=== PATIENT | female | born 1995 | race Caucasian/White ===

== ENCOUNTER → 2016-04-02 | Outpatient (CLI) | payer OTHER ==
[~2016-04-02] MED LIST: ACET50TA PO; IBUP80TA PO; SLOW160T PO; VITAPRTA PO
== END ==
LOC: M SMT 09:03
PROVIDERS: ATTEND Advanced Practice Midwife
DX: F32.89 Other specified depressive episodes (principal)

== ENCOUNTER → 2017-12-13 | Outpatient (REF) | payer SELFPAY, OTHER ==
[2017-12-13 21:16] LABS: CHLAMYDIA DNA AMPLIFICATION NEGATIVE (NEGATIVE); GC DNA AMPLIFICATION NEGATIVE (NEGATIVE)
== END ==
LOC: M SFHCLERA 15:58
DX: N89.8 Other specified noninflammatory disorders of vagina (principal); J02.9 Acute pharyngitis, unspecified

== ENCOUNTER → 2018-02-18 | Outpatient (CLI) | payer SELFPAY ==
[2018-02-20 10:09] LABS: HEPATITIS B SURFACE ANTIGEN NEGATIVE (NEGATIVE)
== END ==
LOC: M SMT 13:16
DX: Z13.89 Encounter for screening for other disorder (principal)

== ENCOUNTER → 2018-02-25 | Outpatient (REF) | payer SELFPAY, OTHER ==
[2018-02-26 13:52] LABS: CHLAMYDIA DNA AMPLIFICATION NEGATIVE (NEGATIVE); GC DNA AMPLIFICATION NEGATIVE (NEGATIVE)
== END ==
LOC: M SFHCLERA 20:22
DX: N89.8 Other specified noninflammatory disorders of vagina (principal)
CPT/HCPCS: 87086

== ENCOUNTER → 2018-03-20 | Outpatient (REF) | payer OTHER ==
[~2018-03-20] MED LIST changes: -ACET50TA PO; +MAPA500T2 PO
== END ==
LOC: M SFHCLERA 10:39
PROVIDERS: ATTEND Nurse Practitioner Family
DX: N89.8 Other specified noninflammatory disorders of vagina (principal)

== ENCOUNTER → 2018-04-16 | Outpatient (REF) | payer BC ==
[2018-04-16 23:06] LABS: CHLAMYDIA DNA AMPLIFICATION NEGATIVE (NEGATIVE); GC DNA AMPLIFICATION NEGATIVE (NEGATIVE)
== END ==
LOC: M SFHCLUC 15:05
PROVIDERS: ATTEND Nurse Practitioner Family
DX: R10.9 Unspecified abdominal pain (principal)

== ENCOUNTER → 2018-05-21 | Outpatient (REF) | payer BC ==
[2018-05-21 22:01] LABS: CHLAMYDIA DNA AMPLIFICATION NEGATIVE (NEGATIVE); GC DNA AMPLIFICATION NEGATIVE (NEGATIVE)
== END ==
LOC: M SFHCLERA 12:23
PROVIDERS: ATTEND Nurse Practitioner Family
DX: R10.9 Unspecified abdominal pain (principal)

== ENCOUNTER → 2019-07-07 | Outpatient (REF) | payer BC | LOC: M LAB REF 16:58 | PROVIDERS: ATTEND Physician Assistant | DX: J02.9 Acute pharyngitis, unspecified (principal) ==

== ENCOUNTER → 2019-08-30 | Outpatient (REF) | payer BC | LOC: M LAB REF 17:43 | PROVIDERS: ATTEND Physician Assistant | DX: N39.0 Urinary tract infection, site not specified (principal) ==

== ENCOUNTER 2019-11-11 12:05 | Day surgery (SDC) | payer BC ==
[2019-11-11] MEDS ORDERED: LIDOCAINE 2% 100MG/5ML SDV (FOR ANES.) As Ordered ONE (12:18)
[2019-11-11] MEDS ORDERED: ROCURONIUM BROMIDE 50 MG/5 ML VIAL As Ordered ONE (12:18)
[2019-11-11] MEDS ORDERED: propofoL 200 MG/20 ML VIAL As Ordered ONE (12:18)
[2019-11-11] MEDS ORDERED: dexameTHASONE 4 MG/ML 1ML VIAL (J1100 PER 1MG) As Ordered ONE (12:18)
[2019-11-11] MEDS ORDERED: SUGAMMADEX SODIUM 500 MG/5 ML VIAL (BRIDION) As Ordered ONE (12:18)
[2019-11-11] MEDS ORDERED: ONDANSETRON 4MG/2ML VIAL As Ordered ONE (12:18)
[2019-11-11] MEDS ORDERED: fentaNYL 100 MCG/2 ML INJECTION (J3010) As Ordered ONE ×2 (12:19→13:14)
[2019-11-11] MEDS ORDERED: MIDAZOLAM INJ 2MG/2ML VIAL (J2250 PER 1MG) As Ordered ONE (12:19)
[2019-11-11] MEDS ORDERED: LIDOCAINE W/EPINEPHRINE 1% 20ML VIAL As Ordered ONE (12:42)
[2019-11-11] MEDS ORDERED: BUPIVACAINE HCL 0.25% 10ML VIAL As Ordered ONE (12:42)
[2019-11-11] MEDS ORDERED: SCOPOLAMINE 1MG TRANSDERMAL PATCH As Ordered ONE (12:54)
[2019-11-11] MEDS ORDERED: SCOPOLAMINE 1MG TRANSDERMAL PATCH ONE (12:54)
[2019-11-11] MEDS ORDERED: IBUPROFEN 600MG TAB As Ordered ONE (13:57)
[2019-11-11] MEDS ORDERED: IBUPROFEN 600MG TAB ONE (13:57)
[2019-11-11] MEDS ORDERED: PERCOCET 5MG/325MG TAB As Ordered ONE (14:52)
[2019-11-11] MEDS ORDERED: PERCOCET 5MG/325MG TAB ONE (14:52)
--- NOTE | 2020-01-07 08:45 | RO ---
DATE OF OPERATION: 11/11/2019 PREOPERATIVE DIAGNOSIS: Chronic tonsillitis. POSTOPERATIVE DIAGNOSIS: Chronic tonsillitis. PROCEDURE: Tonsillectomy. SURGEON: Alexis Temple MD Under general anesthesia with the patient intubated, the patient draped in the usual manner. A Ingram-Hunter mouth gag was inserted. The tonsillar area was infiltrated with lidocaine with epinephrine and Marcaine. Cautery was used to dissect the tonsil free from its bed on both sides. The base, apex, and other areas were cauterized. Patient tolerated the procedure well. No bleeding. Patient extubated and transferred to the recovery room in excellent condition. [id number]
== END 2019-11-11 15:47 | disposition home or self-care (01) ==
LOC: M SDC 12:05
PROVIDERS: ATTEND Otolaryngology
DX: J35.01 Chronic tonsillitis (principal); Z79.899 Other long term (current) drug therapy
CPT/HCPCS: 42826; 88302; J1100; J2250; J2405; J3010

== ENCOUNTER → 2020-02-09 | Outpatient (CLI) | payer BC ==
[2020-02-09 17:33] LABS: BASO % 0.6 % (0.0-1.0); EOS # 0.1 10^3/uL (0.0-0.5); EOS % 1.6 % (0.0-3.0); HEMATOCRIT 37.3 % (36.0-47.0); LYMPH # 1.9 10^3/uL (1.5-5.0); LYMPH % 37.6 % (24.0-44.0); MEAN CORPUSCULAR HEMOGLOBIN 30.3 pg (27.0-33.0); MEAN CORPUSCULAR HGB CONC 32.2 g/dl (32.0-36.5); MEAN CORPUSCULAR VOLUME 94.2 fl (80.0-96.0); MONO # 0.5 10^3/uL (0.0-0.8); MONO % 9.1 % (0.0-5.0); NEUTROPHILS # 2.5 10^3/uL (1.5-8.5); NEUTROPHILS % 50.9 % (36.0-66.0); PLATELET COUNT, AUTOMATED 232 10^3/uL (150-450); RED BLOOD COUNT 3.96 10^6/uL (4.00-5.40)
[2020-02-09 17:53] LABS: ALBUMIN 3.5 GM/DL (3.2-5.2); ALT/SGPT 20 U/L (12-78); BILIRUBIN,TOTAL 0.4 MG/DL (0.2-1.0); BLOOD UREA NITROGEN 9 MG/DL (7-18); C REACTIVE PROTEIN QUANTITATIV 0.96 MG/DL (0.00-0.30); CALCIUM LEVEL 8.9 MG/DL (8.5-10.1); CARBON DIOXIDE LEVEL 27 MEQ/L (21-32); CHLORIDE LEVEL 109 MEQ/L (98-107); CREATININE FOR GFR 0.88 MG/DL (0.55-1.30); GLOMERULAR FILTRATION RATE > 60.0 (>60); GLUCOSE, FASTING 83 MG/DL (70-100); POTASSIUM SERUM 3.8 MEQ/L (3.5-5.1); RHEUMATOID FACTOR QUANT < 10.0 IU/ML (<15.0); SODIUM LEVEL 141 MEQ/L (136-145)
[2020-02-09 18:49] LABS: ERYTHROCYTE SEDIMENTATION RATE 23 mm/hr (0-20)
== END ==
LOC: M PLALAB 15:37
PROVIDERS: ATTEND Physician Assistant
DX: M25.562 Pain in left knee (principal)

== ENCOUNTER → 2023-12-22 | Outpatient (CLI) | payer MEDICAID, MEDICARE, OTHER ==
[2023-12-22 15:21] LABS: HEMATOCRIT 31.9 % (36.0-47.0); HEMOGLOBIN 10.8 g/dl (12.0-15.5); MEAN CORPUSCULAR HEMOGLOBIN 31.7 pg (27.0-33.0); MEAN CORPUSCULAR HGB CONC 33.9 g/dl (32.0-36.5); MEAN CORPUSCULAR VOLUME 93.5 fl (80.0-96.0); PLATELET COUNT, AUTOMATED 223 10^3/uL (150-450); RED BLOOD COUNT 3.41 10^6/uL (4.00-5.40); WHITE BLOOD COUNT 7.3 10^3/uL (4.0-10.0)
[2023-12-22 16:17] LABS: HIV 1&2 SCREEN NEGATIVE (NEGATIVE)
[2023-12-22 16:25] LABS: HEPATITIS C VIRUS ABY INDEX < 0.02 INDEX (<0.8)
[2023-12-22 17:03] LABS: GC DNA AMPLIFICATION NEGATIVE (NEGATIVE)
== END ==
LOC: M PLAIMG 12:24
PROVIDERS: ATTEND Advanced Practice Midwife
DX: Z34.81 Encounter for supervision of other normal pregnancy, first trimester (principal); Z11.3 Encounter for screening for infections with a predominantly sexual mode of transmission

== ENCOUNTER → 2024-02-20 | Outpatient (CLI) | payer OTHER ==
[2024-02-20 13:51] LABS: HEMATOCRIT 29.7 % (36.0-47.0); HEMOGLOBIN 9.5 g/dl (12.0-15.5); MEAN CORPUSCULAR HEMOGLOBIN 30.3 pg (27.0-33.0); MEAN CORPUSCULAR VOLUME 94.6 fl (80.0-96.0); PLATELET COUNT, AUTOMATED 246 10^3/uL (150-450); RED BLOOD COUNT 3.14 10^6/uL (4.00-5.40); WHITE BLOOD COUNT 9.3 10^3/uL (4.0-10.0)
[2024-02-20 13:53] LABS: GLUCOSE CHALLENGE TEST 1 HOUR 151 MG/DL (LESS THAN 140)
[2024-02-20 14:25] LABS: HIV 1&2 SCREEN NEGATIVE (NEGATIVE)
[2024-02-20 14:33] LABS: HEPATITIS C VIRUS ABY INDEX 0.16 INDEX (<0.8)
[2024-02-20 15:26] LABS: GC DNA AMPLIFICATION NEGATIVE (NEGATIVE)
== END ==
LOC: M PLALAB 08:58
PROVIDERS: ATTEND Obstetrics & Gynecology
DX: Z34.92 Encounter for supervision of normal pregnancy, unspecified, second trimester (principal)

== ENCOUNTER → 2024-03-19 | Outpatient (CLI) | payer OTHER ==
[2024-03-19 18:17] LABS: URIC ACID 3.1 MG/DL (3.1-7.8)
[2024-03-19 18:21] LABS: ALBUMIN 2.6 G/DL (3.2-5.2); ALKALINE PHOSPHATASE 109 U/L (35-104); ALT/SGPT 20 U/L (7.0-40); AST/SGOT 22 U/L (<34); BILIRUBIN,TOTAL 0.5 MG/DL (0.3-1.2); BLOOD UREA NITROGEN 6 MG/DL (9-23); CALCIUM LEVEL 8.7 MG/DL (8.5-10.1); CARBON DIOXIDE LEVEL 26 MMOL/L (20-31); CHLORIDE LEVEL 106 MMOL/L (98-107); CREATININE FOR GFR 0.55 MG/DL (0.55-1.30); GLOMERULAR FILTRATION RATE > 60.0 (>60); GLUCOSE, FASTING 70 MG/DL (60-100); SODIUM LEVEL 140 MMOL/L (136-145)
== END ==
LOC: M PLALAB 16:23
PROVIDERS: ATTEND Nurse Practitioner Family
DX: L29.9 Pruritus, unspecified (principal)

== ENCOUNTER → 2024-04-28 | Outpatient (REF) | payer OTHER | LOC: M SFHCWAGY 09:37 | PROVIDERS: ATTEND Obstetrics & Gynecology | DX: Z36.85 Encounter for antenatal screening for Streptococcus B (principal) ==

== ENCOUNTER 2024-05-20 07:04 | Outpatient (CLI) | payer OTHER ==
[~2024-05-20] VITALS: Ht 172.7 cm; Wt 90.9 kg
[2024-05-20 07:22] VITALS: BP 121/60
[2024-05-20 08:52] VITALS: BP 117/61
== END 2024-05-20 09:45 | disposition home or self-care (01) ==
LOC: M LDO 07:04
PROVIDERS: ATTEND Obstetrics & Gynecology
DX: O47.1 False labor at or after 37 completed weeks of gestation (principal); O99.013 Anemia complicating pregnancy, third trimester; O36.0130 Maternal care for anti-D [Rh] antibodies, third trimester, not applicable or unspecified; D50.9 Iron deficiency anemia, unspecified; Z91.199 Patient's noncompliance with other medical treatment and regimen due to unspecified reason; Z3A.39 39 weeks gestation of pregnancy
CPT/HCPCS: 59025; G0463

== ENCOUNTER 2024-05-28 11:22 | Inpatient (IN) | payer OTHER ==
[~2024-05-28] VITALS: Ht 172.7 cm; Wt 91.8 kg
[2024-05-28] VITALS (22 sets, daily range): BP systolic 106–197; BP diastolic 60–106; O2SAT 97
[2024-05-28] MEDS ORDERED: LACTATED RINGER'S 1000 ML IV STA (12:07)
[2024-05-28] MEDS ORDERED: CARBOPROST TROMETHAMINE 250 MCG/ML AMP IM PRN (12:10)
[2024-05-28] MEDS ORDERED: OXYTOCIN INJ 10UNITS/ML 1ML VIAL IM PRN (12:10)
[2024-05-28] MEDS ORDERED: TRANEXAMIC ACID INJection 1,000 MG in NS 100 ML IV PRN (12:10)
[2024-05-28] MEDS ORDERED: LIDOCAINE 1% MDV 20ML VIAL INFIL PRN (12:10)
[2024-05-28 12:45] LABS: HEMATOCRIT 33.9 % (36.0-47.0); HEMOGLOBIN 10.5 g/dl (12.0-15.5); MEAN CORPUSCULAR HEMOGLOBIN 26.6 pg (27.0-33.0); PLATELET COUNT, AUTOMATED 258 10^3/uL (150-450); RED BLOOD COUNT 3.94 10^6/uL (4.00-5.40); WHITE BLOOD COUNT 10.4 10^3/uL (4.0-10.0)
[2024-05-28] MEDS: miSOPROStol 50MCG 1/2 TABLET PO SCH (12:49)
[2024-05-28 13:37] LABS: HIV 1&2 SCREEN NEGATIVE (NEGATIVE)
[2024-05-28 13:45] LABS: HEPATITIS C VIRUS ABY INDEX 0.11 INDEX (<0.8)
[2024-05-28] MEDS: PROMETHAZINE 25MG/ML 1ML VIAL IV ONE (17:13)
[2024-05-28] MEDS: BUTORPHANOL 2 MG/ML 1ML VIAL IV ONE (17:13)
[2024-05-28] MEDS ORDERED: diphenhydrAMINE 50MG/ML VIAL IV PRN (19:45)
[2024-05-28] MEDS ORDERED: EPIDURAL/PCA KEYS XX PRN (19:45)
[2024-05-28] MEDS ORDERED: ePHEDrine SULFATE 25 MG/5 ML(5MG/ML) SYRINGE IVP PRN (19:45)
[2024-05-28] MEDS ORDERED: NALOXONE INJ 0.4MG/1ML VIAL IV PRN (19:45)
[2024-05-28] MEDS: FENTANYL/ROPIVACAINE/NACL BAG 100 ML EPIDURAL SCH (19:52)
[2024-05-28] MEDS: METHYLERGONOVINE MALEATE 0.2MG/ML 1ML VIAL IM PRN (21:25)
[2024-05-28] MEDS: OXYTOCIN DRIP 30 UNITS in IV 1 EA IV PRN (21:25)
[2024-05-28] MEDS: LR 500 ML IV PRN (21:25)
[2024-05-28] MEDS ORDERED: ACETAMINOPHEN 325 MG TAB PO PRN (21:50)
[2024-05-28] MEDS ORDERED: ANUSOL HC CREAM 30GM TOP PRN (21:50)
[2024-05-28] MEDS ORDERED: DOCUSATE SODIUM 100MG CAPSULE PO PRN (21:50)
[2024-05-28] MEDS ORDERED: MOM 30ML SUSPENSION UDC PO PRN (21:50)
[2024-05-28] MEDS ORDERED: IBUPROFEN 600MG TAB PO PRN (21:50)
[2024-05-28] MEDS ORDERED: IBUPROFEN 800 MG TAB PO PRN (21:50)
[2024-05-28] MEDS ORDERED: DIBUCAINE 1% OINTMENT 30GM TOP PRN (21:50)
[2024-05-28] MEDS: KETOROLAC 30 MG/ML 1ML VIAL IV ONE (22:50)
[2024-05-28] MEDS: ONDANSETRON 4MG 2ML VIAL IV PRN (23:50)
[2024-05-29 06:10] VITALS: BP 111/51; O2SAT 99
[2024-05-29] MEDS: ACETAMINOPHEN 500 MG TAB PO PRN (08:19)
[2024-05-29] MEDS: PRENATAL VITAMINS CHEWABLE TABLET PO SCH (08:19)
[2024-05-29 10:00] VITALS: BP 111/51; TEMP 97.8; O2SAT 99
[2024-05-29] MEDS: RHOGAM 300MCG (1500IU) INJ IM SCH (12:24)
[2024-05-29] MEDS ORDERED: ACET-683 PO (14:35)
[2024-05-29] MEDS ORDERED: IBUP80TA PO (14:35)
[2024-05-30] MEDS ORDERED: MEASLES,MUMPS,RUBELLA VACCINE INJ (MMR-II) SC.IMMUN ONE (09:00)
== END 2024-05-29 16:00 | disposition home or self-care (01) | DRG 560 ==
LOC: M LDI 11:22 → M OBS 23:13
PROVIDERS: ADMIT Advanced Practice Midwife; ATTEND Advanced Practice Midwife
PROC: 10E0XZZ Delivery of Products of Conception, External Approach (ICD-10-PCS; principal; 2024-05-28)
PROC: 3E0P7GC Introduction of Other Therapeutic Substance into Female Reproductive, Via Natural or Artificial Opening (ICD-10-PCS; 2024-05-28)
DX: O99.892 Other specified diseases and conditions complicating childbirth (principal); O48.0 Post-term pregnancy; O66.0 Obstructed labor due to shoulder dystocia; Z3A.40 40 weeks gestation of pregnancy; Z88.6 Allergy status to analgesic agent; Z37.0 Single live birth